=== PATIENT | male | born 1980 | race Caucasian/White ===

== ENCOUNTER 2017-01-23 13:46 | Emergency (ER) | payer OTHER ==
[2017-01-23 13:55] VITALS: RESP 18; TEMP 98
[2017-01-23] MEDS ORDERED: ACET/COD 300 MG/30 MG STARTER PACK 6 TAB BTL PO STA (14:02)
--- NOTE | 2017-01-23 14:44 | XR ---
Chest x-ray with left RIBS HISTORY: Trauma and pain Frontal view of the chest, 4 views of the left ribs submitted on a total of 6 images No comparisons There is no pneumothorax or pleural effusion. Cardiomediastinal silhouette, pulmonary vascularity and yulissa are normal. T6 seventh and eighth ribs show a lucency compatible with nondisplaced fractures la terally. IMPRESSION: Left-sided rib fractures
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
[2017-01-23 15:11] VITALS: BP 159/80; PULSE 88
== END 2017-01-23 15:25 | disposition home or self-care (01) ==
LOC: EC 13:46
DX: S22.42XA Multiple fractures of ribs, left side, initial encounter for closed fracture (principal); F17.200 Nicotine dependence, unspecified, uncomplicated
CPT/HCPCS: 99283